=== PATIENT | female | born 1980 | race Caucasian/White ===

== ENCOUNTER 2018-08-04 07:25 | Inpatient (IN) | payer OTHER ==
[~2018-08-04] VITALS: Ht 165.1 cm; Wt 66.9 kg
[2018-08-04 10:11] VITALS: BP 129/74; PULSE 82; RESP 18
[2018-08-04 10:14] VITALS: Ht 165.1 cm; Wt 66.9 kg
--- NOTE | 2018-08-04 11:24 | HP ---
Date/Time of Note Date/Time of Note DATE: 08/04/18 TIME: 11:24 Assessment/Plan VTE Prophylaxis Pharmacological prophylaxis: NA/contraindicated Pharm contraindication: low risk/ambulating Assessment/Plan Hospital Course 37-year-old female with comorbidities including hypertension who takes antihypertensives irregularly and daily nicotine use. The patient has left gluteal area cellulitis that was unresponsive to oral antimicrobials. Therefore, the patient was transferred from a transferring hospital for inpatient management of left gluteal cellulitis. 1. Left gluteal cellulitis. -Will start the patient on appropriate antimicrobials including MRSA coverage since the patient was not responding well to Keflex plus clindamycin. -CT scan from the transferring facility was negative for any abscess. 2. Hypertension. -The patient takes antihypertensives infrequently. -Will monitor blood pressure trends. -Start antihypertensives for high blood pressure readings. 3. Vitamin B12 deficiency -Obtain vitamin B12 levels. Plan: The patient will be admitted to inpatient medical surgical floor. The patient will be started on a regular diet. The patient will be started on DVT prophylaxis. The patient will remain a full code. Activities will be as tolerated. The rest of the patient's management will be based on the clinical course, inputs from consultants, and the results of diagnostic studies. Based on the patient's clinical presentation, she most probably requires at least 2 midnights' stay for further management and evaluation of her clinical presentation. The patient was seen in collaboration with Dr. Wyman. HPI/JONAH Admit Date/Time Admit Date/Time Aug 04, 2018 at 09:55 Hx of Present Illness Reason for admission: Transfer from outside facility for further management left gluteal cellulitis. This is a 37-year-old female with past medical history of hypertension and current nicotine user. The patient has been injecting vitamin B12 imported from [place] for apparent vitamin B12 deficiency. The patient had her last shot vitamin B12 on the left gluteal area approximately 9 days ago. The patient started having pain in the area from the next day. The patient started developing swelling and erythema that became worse. The patient went to the emergency room at [facility] 3 days ago, when she had an ultrasound of the left gluteal area and was sent home on Keflex and clindamycin. The patient has started feeling worse with fevers and worsening pain and increasing erythema of the left gluteal area. Therefore, the patient went back to [facility]. The patient underwent a CT scan of the pelvis that was showing no evidence of any abscess but evidence of cellulitis. The patient was started on IV antimicrobials and was transferred to [facility] for further evaluation because of insurance reasons. ROS Constitutional: febrile Eyes: no complaints ENT: no complaints Respiratory: no complaints Cardiovascular: no complaints Gastrointestinal: no complaints Genitourinary: no complaints Musculoskeletal: swelling (Left gluteal area), other Skin: erythema Neurologic: no complaints Endocrine: no complaints Lymphatic: no complaints Psychological: no complaints Immunologic: no complaints PMH/Family/Social Past Medical History Medical History: hypertension Medications Current Medications Sodium Chloride 1,000 ml @ 75 mls/hr [id number] IV ; Start 08/04/18 at 11:21; Status UNV IV Flush (NS 3 ml) 3 ml PER PROTOCOL IV ; Start 08/04/18 at 11:30; Status UNV Ondansetron HCl (Zofran Inj) 4 mg Q6H PRN IV NAUSEA/VOMITING; Start 08/04/18 at 11:30; Status UNV Acetaminophen (Tylenol Tab) 650 mg Q6H PRN PO .PAIN 1-3 OR TEMP; Start 08/04/18 at 11:30; Status UNV Coded Allergies: No Known Allergies (Verified Allergy, Unknown, 08/04/18) Past Surgical History B/L breast plastic surgery. Family History Significant Family History: no pertinent family hx Social History Patient lives at home. Alcohol Use: other (Almost daily) Smoking Status: Current some day smoker Drug Use: none Exam/Review of Systems Vital Signs Vitals Vital Signs Date Temp Pulse Resp B/P (MAP) Pulse Ox O2 O2 Flow FiO2 Time Delivery Rate 08/04/18 98.5 82 18 129/74 97 Room Air 10:11 (92) Exam Exam General: Adequately build 37 year-old female lying in bed in no apparent distress. HEENT: Normocephalic, atraumatic. Eyes: Anicteric sclerae, conjunctivae clear. ENT: Nasal septum midline, oral mucosa moist. Neck supple, no JVD noticed. Respiratory: Bilaterally clear breath sounds. No use of accessory muscles of respiration. No adventitious breath sounds. Cardiovascular: S1, S2 heard. No murmurs or gallops. Abdomen: Soft, nontender, and nondistended. Bowel sounds positive in all 4 quadrants. Genitourinary: Deferred. Extremities: No cyanosis, no clubbing, no edema. Peripheral pulses palpable. Neurologic: Cranial nerves II through XII grossly intact. The patient is awake, alert, and oriented. Skin (examined with female reservations specialist): Left gluteal area erythema and induration. Tenderness to touch. No left inguinal lymphadenopathy. Additional Comments CT Pelvis with Contrast (from transferring facility) 1. Multiple collections and stranding in the subcutaneous fat of the left buttock suspicious for cellulitis versus trauma. 2. No organized abscess. 3. No evidence of acute fracture or dislocation. Labs (from transferring facility) CBC: WBC 6.9, hemoglobin 13.4, and 39.3, platelet count 367. BMP: Sodium 135, potassium 4.2, chloride 97, CO2 27, anion gap 11, glucose 114, BUN 5, creatinine 0.5. NURYS IZQUIERDO NP Aug 04, 2018 11:24
[2018-08-04] MEDS ORDERED: NACL 0.9% 3 ML SYG IV SCH (11:30)
[2018-08-04] MEDS ORDERED: ONDANSETRON 4 MG INJ IV PRN (11:30)
[2018-08-04] MEDS ORDERED: ACETAMINOPHEN 325 MG TAB PO PRN (11:30)
[2018-08-04] MEDS: SOD CHLORIDE 0.9% 1,000 ML IV SCH (11:54)
[2018-08-04] MEDS ORDERED: VANCOMYCIN IV PER PHARMACY XX SCH (13:00)
[2018-08-04] MEDS ORDERED: hydrALAzine 20 MG INJ IV PRN (13:00)
[2018-08-04 13:39] VITALS: BP 124/70; PULSE 76; RESP 18
[2018-08-04] MEDS ORDERED: VANCOMYCIN HCL 1.25 GM in SOD CHLORIDE 0.9% 250 ML IVPB ONE ×2 (14:00→16:00)
[2018-08-04] MEDS: CEFTRIAXONE 1 GM/50 ML (PMX) 50 ML IVPB SCH (14:27)
[2018-08-04] MEDS ORDERED: VANCOMYCIN 1 GM 250 ML IVPB SCH (16:00)
--- NOTE | 2018-08-04 17:58 | CONS ---
DATE OF ADMISSION: 08/04/2018 DATE OF CONSULTATION: 08/04/2018 TYPE OF CONSULTATION: Infectious Disease. REASON FOR CONSULTATION: Antibiotic management. HISTORY OF PRESENT ILLNESS: Nova Patel is a 37-year-old female with a number of problems incl uding hypertension. She comes in with left gluteal cellulitis unresponsive to oral antibiotics. She has a left gluteal cellulitis, which she may have developed secondary to B12 shots. The patient was not responding to Keflex and clindamycin. CT scan from the transferring facility was negative for a [place] abscess. She has been injecting B12 from [place] for B12 deficiency. Her last B12 shot was 9 days ago. She started having pain in the area from the next day. The patient started developing swellin g and erythema that became worse. The patient went to the emergency room at [place] 3 days ago when she had an ultrasound of the left gluteal area, was sent home on Keflex and clindamycin. She started feeling worse with fevers and worsening pain and increasing erythema of the left gluteal area. She then went back to [place], had a CT scan of the pelvis which did not show evidence of cellulitis, and was therefore admitted to [facility] for insurance reasons. PAST MEDICAL HISTORY: Operations as outlined. She had bilateral breast plastic surgery. SOCIAL HISTORY: She lives at home. She is a current smoker. She drinks alcohol almost daily. She does not abuse drugs. ALLERGIES: NONE TO PENICILLIN, SULFA OR FOODS. MEDICATIONS: Per chart. REVIEW OF SYSTEMS: As per HPI. PHYSICAL EXAMINATION: GENERAL: The patient is a well-developed, well-nourished female who is alert, responsive, in no acut e distress. VITAL SIGNS: Stable. She is afebrile. SKIN: Without generalized rash. HEENT: Within normal limits. NECK: Supple. LYMPH NODES: None palpable. CHEST: Decreased breath sounds at the bases. HEART: Without murmur or gallop. ABDOMEN: Soft, nontender, without organosplenomegaly or masses. EXTREMITIES: Without cyanosis, clubbing, or edema. RECTAL AND GENITAL: Exams deferred. The left gluteal area is erythematous and indurated, tender to the touch. There is no left inguinal adenopathy. NEUROLOGICAL: No focal neurological abnormality. IMAGING: CT scan of the pelvis with contrast, multiple collections and stranding in the subcutaneous fat of the left buttock suspicious for cellulitis versus trauma. No organized abscess. No evidence of acute fracture or dislocation. ANCILLARY LABORATORY DATA: White count was 5.9, H and H 11.4 and 34.3, platelet count 284,000. BUN and creatinine was not done here. PLAN: The patient was started on vancomycin and ceftriaxone. We will continue her on this regimen. I will dictate my findings to the hospitalist. Dictated By: LANI OTOOLE MD, JD/NTS Conf#: [id number] DID#: [id number] CC: RACHELLE NEWELL MD;*EndCC*
[2018-08-04] MEDS: HYDROCODONE/APAP (5/325) TAB PO PRN (18:29)
[2018-08-04 20:00] VITALS: BP 131/83; PULSE 78; RESP 20
[2018-08-04] MEDS: morphine 2 MG INJ IV PRN (23:11)
[2018-08-05] MEDS: SOD CHLORIDE 0.9% 1,000 ML IV SCH ×2 (00:41→07:30)
[2018-08-05 01:38] VITALS: BP 120/84; PULSE 78; RESP 20
[2018-08-05] MEDS: VANCOMYCIN 1 GM 250 ML IVPB SCH ×2 (04:15→17:00)
[2018-08-05] MEDS: HYDROCODONE/APAP (5/325) TAB PO PRN ×2 (05:57→14:16)
[2018-08-05 08:00] VITALS: BP 108/61; PULSE 81; RESP 18
--- NOTE | 2018-08-05 11:14 | PN ---
Date/Time of Note Date/Time of Note DATE: 08/05/18 TIME: 11:10 Assessment/Plan VTE Prophylaxis Risk score (from Nsg)>0 risk: 0 SCD applied (from Nsg): Yes Pharmacological prophylaxis: NA/contraindicated Pharm contraindication: low risk/ambulating Lines/Catheters IV Catheter Type (from Nrsg): Peripheral IV Assessment/Plan Hospital Course SUBJECTIVE: The patient remains afebrile. Left gluteal area pain improved. Still has some difficulty with walking. OBJECTIVE: Physical Exam General: Adequately build 37 year-old female lying in bed in no apparent distress. HEENT: Normocephalic, atraumatic. Eyes: Anicteric sclerae, conjunctivae clear. ENT: Nasal septum midline, oral mucosa moist. Neck supple, no JVD noticed. Respiratory: Bilaterally clear breath sounds. No use of accessory muscles of respiration. No adventitious breath sounds. Cardiovascular: S1, S2 heard. No murmurs or gallops. Abdomen: Soft, nontender, and nondistended. Bowel sounds positive in all 4 quadrants. Genitourinary: Deferred. Extremities: No cyanosis, no clubbing, no edema. Peripheral pulses palpable. Neurologic: Cranial nerves II through XII grossly intact. The patient is awake, alert, and oriented. Skin (examined with female horticulture instructor): Left gluteal area erythema and induration (improved). Tenderness to touch. No left inguinal lymphadenopathy. Labs & Vitals per chart ASSESSMENT & PLAN 37-year-old female with comorbidities including hypertension who takes antihypertensives irregularly and daily nicotine use. The patient has left gluteal area cellulitis that was unresponsive to oral antimicrobials. Therefore, the patient was transferred from a transferring hospital for inpatient management of left gluteal cellulitis. 1. Left gluteal cellulitis. -Continue the patient on appropriate antimicrobials including MRSA coverage since the patient was not responding well to Keflex plus clindamycin. -CT scan from the transferring facility was negative for any abscess. -ID following. 2. Hypertension. -The patient takes antihypertensives infrequently. -Will monitor blood pressure trends. -Continue antihypertensives for high blood pressure readings. 3. Reported vitamin B12 deficiency -Vitamin B12 levels adequate. 4. Nicotine use. -Cessation advised. 5. Fluids, electrolytes, and nutrition. -Regular diet. 6. DVT prophylaxis -Bilateral SCDs. 7. Plan. -Continue antimicrobials as per ID. -Await clinical improvement. -Physical therapy evaluation. The patient was seen in collaboration with Dr. Wyman. Result Diagram: 08/05/18 0538 08/05/18 0538 Results 24hrs Laboratory Tests Test 08/04/18 13:59 08/04/18 16:00 08/05/18 05:38 White Blood Count 5.9 5.4 Red Blood Count 3.66 L 3.75 L Hemoglobin 11.4 L 11.6 L Hematocrit 34.3 L 35.7 L Mean Corpuscular Volume 93.7 95.2 Mean Corpuscular Hemoglobin 31.1 30.9 Mean Corpuscular Hemoglobin Concent 33.2 32.5 Red Cell Distribution Width 12.5 12.4 Platelet Count 284 304 Mean Platelet Volume 9.8 9.5 Immature Granulocytes % 0.300 0.400 Neutrophils % 72.1 57.2 Lymphocytes % 16.5 28.3 Monocytes % 8.7 10.7 Eosinophils % 1.9 2.8 Basophils % 0.5 0.6 Nucleated Red Blood Cells % 0.0 0.0 Immature Granulocytes # 0.020 0.020 Neutrophils # 4.2 3.1 Lymphocytes # 1.0 1.5 Monocytes # 0.5 0.6 Eosinophils # 0.1 0.2 Basophils # 0.0 0.0 Nucleated Red Blood Cells # 0.0 0.0 Erythrocyte Sedimentation Rate 30 H Sodium Level 140 140 Potassium Level 3.7 4.2 Chloride Level 103 107 Carbon Dioxide Level 24 26 Anion Gap 13 7 Blood Urea Nitrogen 7 5 L Creatinine 0.63 0.56 Est Glomerular Filtrat Rate mL/min > 60 > 60 Glucose Level 120 94 Hemoglobin A1c 5.1 Calcium Level 8.6 8.7 Phosphorus Level 3.3 3.6 Magnesium Level 2.1 2.1 Total Bilirubin 0.1 L 0.1 L Direct Bilirubin 0.00 0.00 Indirect Bilirubin 0.1 0.1 Aspartate Amino Transf (AST/SGOT) 21 21 Alanine Aminotransferase (ALT/SGPT) 31 30 Alkaline Phosphatase 72 75 C-Reactive Protein 7.5 H Total Protein 6.8 6.5 Albumin 3.3 3.2 L Globulin 3.50 H 3.30 H Albumin/Globulin Ratio 0.94 0.96 Vitamin B12 Level 980 H Urine Test NEGATIVE Triglycerides Level 82 Cholesterol Level 122 LDL Cholesterol, Calculated 77 HDL Cholesterol 29 L Cholesterol/HDL Ratio 4.2 Exam/Review of Systems Exam Vitals Vital Signs Date Temp Pulse Resp B/P (MAP) Pulse Ox O2 O2 Flow FiO2 Time Delivery Rate 08/05/18 98.3 81 18 108/61 97 Room Air 08:00 (77) Intake and Output 08/04/18 08/04/18 08/05/18 1515:00 23:00 07:00 IntakeIntake Total 1050 ml 1100 ml BalanceBalance 1050 ml 1100 ml Results Results 24hrs Laboratory Tests Test 08/04/18 13:59 08/04/18 16:00 08/05/18 05:38 White Blood Count 5.9 5.4 Red Blood Count 3.66 L 3.75 L Hemoglobin 11.4 L 11.6 L Hematocrit 34.3 L 35.7 L Mean Corpuscular Volume 93.7 95.2 Mean Corpuscular Hemoglobin 31.1 30.9 Mean Corpuscular Hemoglobin Concent 33.2 32.5 Red Cell Distribution Width 12.5 12.4 Platelet Count 284 304 Mean Platelet Volume 9.8 9.5 Immature Granulocytes % 0.300 0.400 Neutrophils % 72.1 57.2 Lymphocytes % 16.5 28.3 Monocytes % 8.7 10.7 Eosinophils % 1.9 2.8 Basophils % 0.5 0.6 Nucleated Red Blood Cells % 0.0 0.0 Immature Granulocytes # 0.020 0.020 Neutrophils # 4.2 3.1 Lymphocytes # 1.0 1.5 Monocytes # 0.5 0.6 Eosinophils # 0.1 0.2 Basophils # 0.0 0.0 Nucleated Red Blood Cells # 0.0 0.0 Erythrocyte Sedimentation Rate 30 H Sodium Level 140 140 Potassium Level 3.7 4.2 Chloride Level 103 107 Carbon Dioxide Level 24 26 Anion Gap 13 7 Blood Urea Nitrogen 7 5 L Creatinine 0.63 0.56 Est Glomerular Filtrat Rate mL/min > 60 > 60 Glucose Level 120 94 Hemoglobin A1c 5.1 Calcium Level 8.6 8.7 Phosphorus Level 3.3 3.6 Magnesium Level 2.1 2.1 Total Bilirubin 0.1 L 0.1 L Direct Bilirubin 0.00 0.00 Indirect Bilirubin 0.1 0.1 Aspartate Amino Transf (AST/SGOT) 21 21 Alanine Aminotransferase (ALT/SGPT) 31 30 Alkaline Phosphatase 72 75 C-Reactive Protein 7.5 H Total Protein 6.8 6.5 Albumin 3.3 3.2 L Globulin 3.50 H 3.30 H Albumin/Globulin Ratio 0.94 0.96 Vitamin B12 Level 980 H Urine Test NEGATIVE Triglycerides Level 82 Cholesterol Level 122 LDL Cholesterol, Calculated 77 HDL Cholesterol 29 L Cholesterol/HDL Ratio 4.2 Medications Medication Current Medications Sodium Chloride 1,000 ml @ 75 mls/hr [id number] IV Last administered on 08/05/18at 07:30; Admin Dose 75 MLS/HR; Start 08/04/18 at 11:21 IV Flush (NS 3 ml) 3 ml PER PROTOCOL IV ; Start 08/04/18 at 11:30 Ondansetron HCl (Zofran Inj) 4 mg Q6H PRN IV NAUSEA/VOMITING; Start 08/04/18 at 11:30 Acetaminophen (Tylenol Tab) 650 mg Q6H PRN PO .PAIN 1-3 OR TEMP Last administered on 08/04/18at 11:55; Admin Dose 650 MG; Start 08/04/18 at 11:30 Vancomycin HCl (Vanco Iv Per Pharmacy) VANCOMYCIN PER PHARMACY PER PROTOCOL XX ; Start 08/04/18 at 13:00 Ceftriaxone Sodium 50 ml @ 100 mls/hr Q24H IVPB Last administered on 08/04/18at 14:27; Admin Dose 100 MLS/HR; Start 08/04/18 at 13:00 Hydralazine HCl (Apresoline) 10 mg Q6H PRN IV SBP>160; Start 08/04/18 at 13:00 Acetaminophen/ Hydrocodone Bitart ([place] (5/325)) 1 tab Q6H PRN PO MODERATE PAIN LEVEL 4-6 Last administered on 08/05/18at 05:57; Admin Dose 1 TAB; Start 08/04/18 at 13:00 Morphine Sulfate (morphine) 2 mg Q4H PRN IV SEVERE PAIN LEVEL 7-10 Last administered on 08/04/18at 23:11; Admin Dose 2 MG; Start 08/04/18 at 13:00 Vancomycin HCl 250 ml @ 125 mls/hr Q12H IVPB Last administered on 08/05/18at 04:15; Admin Dose 125 MLS/HR; Start 08/05/18 at 04:00 Miscellaneous Information (*Rx Drug Level Order Reminder*) VANCOMYCIN TROUGH AT 0300 ONCE ONCE XX ; Start 08/06/18 at 03:00; Stop 08/06/18 at 03:01 NURYS IZQUIERDO NP Aug 05, 2018 11:14
[2018-08-05] MEDS: morphine 2 MG INJ IV PRN ×2 (11:37→21:55)
[2018-08-05] MEDS: CEFTRIAXONE 1 GM/50 ML (PMX) 50 ML IVPB SCH (12:39)
[2018-08-05 14:00] VITALS: BP 137/82; PULSE 79; RESP 18
--- NOTE | 2018-08-05 15:06 | CONS ---
Assessment/Plan Assessment/Plan Hospital Course (Demo Recall) ID PROGRESS NOTE CURRENT ABX: DAY #1.5 => Vanco IV + Ceftriaxone 08/05/18 0538 08/05/18 0538 24H INTERVAL SUMMARY * No fevers, VSS, polite, she is reportedly a difficult IV stick, she is currently having IV placed w/use of vein finder/US and has tears in her eyes. She denies any drainage from the buttock site -- exam of buttock is deferred as RNs attempting venous access -- PHOTOS on chart reviewed. * No fevers, VSS, ESR 30 * Admit for failed PO ABX Tx with Clinda + Keflex of left gluteus wound and L gluteus cellulitis reportedly as a result of injecting B12 from [place] for B12 deficiency-last B12 shot was 9 prior to admission * IMAGING: CT scan of the pelvis with contrast, multiple collections and stranding in the subcutaneous fat of the left buttock suspicious for cellulitis versus trauma. No organized abscess. No evidence of acute fracture or dislocation. * CT scan from the transferring facility was negative for any abscess. MICRO/OTHER * 08/04/18 BCx (-) PHYSICAL EXAMINATION: GENERAL: The patient is a well-developed, well-nourished female who is alert, responsive, in no acute distress. VITAL SIGNS: Stable. She is afebrile. SKIN: Without generalized rash. HEENT: Within normal limits. NECK: Supple. LYMPH NODES: None palpable. CHEST: Decreased breath sounds at the bases. HEART: Without murmur or gallop. ABDOMEN: Soft, nontender, without organosplenomegaly or masses. EXTREMITIES: Without cyanosis, clubbing, or edema. RECTAL AND GENITAL: Exams deferred. The left gluteal area is erythematous and indurated, tender to the touch. There is no left inguinal adenopathy. NEUROLOGICAL: No focal neurological abnormality. ID ASSESSMENT 37 yo F admit with: 1. Left gluteal cellulitis from local injections == QUERY IVDU ? * -CT scan from the transferring facility was negative for any abscess. 2. Hx of Hepatitis C w/liver cirrhosis per EGD biopsy note 2009 3. Portal HTN 4. HTN 5. Hx of gastric ulcers -- avoid NSAIDS 6. Vitamin B12 deficiency - patient reports she is on B12 injections. 7. Psych Dx NOS w/anxiety 8. Hx of overdose from "pills" x2: #1 2000 in [place]; #2 OD in 2003 9. Current daily tobacco user 10. Daily ETOH user 11. Hx Bilateral breast implants MRSA Nares -> Pending INVASIVES: PIV ABX ALLERGIES: KNDA CURRENT ABX: Vanco IV + Ceftriaxone ID RECOMMENDATIONS/PLAN: 1. Continue ABX 2. Await wound cx and MRSA Nares on order . Consultation Date/Type/Reason Admit Date/Time Aug 04, 2018 at 09:55 Initial Consult Date Date/Time of Note DATE: 08/05/18 TIME: 14:53 Exam/Review of Systems Exam Vitals Vital Signs Date Temp Pulse Resp B/P (MAP) Pulse Ox O2 O2 Flow FiO2 Time Delivery Rate 08/05/18 98.3 81 18 108/61 97 Room Air 08:00 (77) Intake and Output 08/04/18 08/04/18 08/05/18 1414:59 22:59 06:59 IntakeIntake Total 1050 ml 1100 ml BalanceBalance 1050 ml 1100 ml Results Result Diagram: 08/05/18 0538 08/05/18 0538 Results 24hrs Laboratory Tests Test 08/04/18 16:00 08/05/18 05:38 Urine Test NEGATIVE White Blood Count 5.4 Red Blood Count 3.75 L Hemoglobin 11.6 L Hematocrit 35.7 L Mean Corpuscular Volume 95.2 Mean Corpuscular Hemoglobin 30.9 Mean Corpuscular Hemoglobin Concent 32.5 Red Cell Distribution Width 12.4 Platelet Count 304 Mean Platelet Volume 9.5 Immature Granulocytes % 0.400 Neutrophils % 57.2 Lymphocytes % 28.3 Monocytes % 10.7 Eosinophils % 2.8 Basophils % 0.6 Nucleated Red Blood Cells % 0.0 Immature Granulocytes # 0.020 Neutrophils # 3.1 Lymphocytes # 1.5 Monocytes # 0.6 Eosinophils # 0.2 Basophils # 0.0 Nucleated Red Blood Cells # 0.0 Sodium Level 140 Potassium Level 4.2 Chloride Level 107 Carbon Dioxide Level 26 Anion Gap 7 Blood Urea Nitrogen 5 L Creatinine 0.56 Est Glomerular Filtrat Rate mL/min > 60 Glucose Level 94 Calcium Level 8.7 Phosphorus Level 3.6 Magnesium Level 2.1 Total Bilirubin 0.1 L Direct Bilirubin 0.00 Indirect Bilirubin 0.1 Aspartate Amino Transf (AST/SGOT) 21 Alanine Aminotransferase (ALT/SGPT) 30 Alkaline Phosphatase 75 Total Protein 6.5 Albumin 3.2 L Globulin 3.30 H Albumin/Globulin Ratio 0.96 Triglycerides Level 82 Cholesterol Level 122 LDL Cholesterol, Calculated 77 HDL Cholesterol 29 L Cholesterol/HDL Ratio 4.2 Medications Medication Current Medications IV Flush (NS 3 ml) 3 ml PER PROTOCOL IV ; Start 08/04/18 at 11:30 Ondansetron HCl (Zofran Inj) 4 mg Q6H PRN IV NAUSEA/VOMITING; Start 08/04/18 at 11:30 Acetaminophen (Tylenol Tab) 650 mg Q6H PRN PO .PAIN 1-3 OR TEMP Last administered on 08/04/18at 11:55; Admin Dose 650 MG; Start 08/04/18 at 11:30 Vancomycin HCl (Vanco Iv Per Pharmacy) VANCOMYCIN PER PHARMACY PER PROTOCOL XX ; Start 08/04/18 at 13:00 Ceftriaxone Sodium 50 ml @ 100 mls/hr Q24H IVPB Last administered on 08/05/18at 12:39; Admin Dose 100 MLS/HR; Start 08/04/18 at 13:00 Hydralazine HCl (Apresoline) 10 mg Q6H PRN IV SBP>160; Start 08/04/18 at 13:00 Acetaminophen/ Hydrocodone Bitart ([place] (5/325)) 1 tab Q6H PRN PO MODERATE PAIN LEVEL 4-6 Last administered on 08/05/18at 14:16; Admin Dose 1 TAB; Start 08/04/18 at 13:00 Morphine Sulfate (morphine) 2 mg Q4H PRN IV SEVERE PAIN LEVEL 7-10 Last administered on 08/05/18at 11:37; Admin Dose 2 MG; Start 08/04/18 at 13:00 Vancomycin HCl 250 ml @ 125 mls/hr Q12H IVPB Last administered on 08/05/18at 04:15; Admin Dose 125 MLS/HR; Start 08/05/18 at 04:00 Miscellaneous Information (*Rx Drug Level Order Reminder*) VANCOMYCIN TROUGH AT 0300 ONCE ONCE XX ; Start 08/06/18 at 03:00; Stop 08/06/18 at 03:01 MISAEL YOO NP Aug 05, 2018 15:04
[2018-08-05 20:41] VITALS: BP 131/85; PULSE 76; RESP 18
[2018-08-05] MEDS ORDERED: KETOROLAC 15 MG INJ IV PRN (23:00)
[2018-08-06 02:00] VITALS: BP 119/75; PULSE 62; RESP 18
[2018-08-06] MEDS: VANCOMYCIN 1 GM 250 ML IVPB SCH ×3 (04:18→20:24)
[2018-08-06 08:00] VITALS: BP 114/75; PULSE 74; RESP 18
[2018-08-06 14:00] VITALS: BP 118/65; PULSE 78; RESP 18
--- NOTE | 2018-08-06 14:08 | PN ---
Date/Time of Note Date/Time of Note DATE: 08/06/18 TIME: 14:05 Assessment/Plan VTE Prophylaxis Risk score (from Nsg)>0 risk: 0 SCD applied (from Ns): No SCD contraindicated: other Pharmacological prophylaxis: LMWH Lines/Catheters IV C[facility]ter Type [facility]from [facility] Saline Lock Assessment/Plan Hospital Course SUBJECTIVE: The patient remains afebrile. Significant pain last night with radiation down the left lower extremity. Still has some difficulty with walking. OBJECTIVE: Physical Exam General: Adequately build 37 year-old female lying in bed in no apparent dis tress. HEENT: Normocephalic, atraumatic. Eyes: Anicteric sclerae, conjunctivae clear. ENT: Nasal septum midline, oral mucosa moist. Neck supple, no JVD noticed. Respiratory: Bilaterally clear breath sounds. No use of accessory muscles of respiration. No adventitious breath sounds. Cardiovascular: S1, S2 heard. No murmurs or gallops. Abdomen: Soft, nontender, and nondistended. Bowel sounds positive in all 4 quadrants. Genitourinary: Deferred. Extremities: No cyanosis, no clubbing, no edema. Peripheral pulses palpable. Neurologic: Cranial nerves II through XII grossly intact. The patient is awake, alert, and oriented. Skin (examined with female bleacher lard): Left gluteal area erythema resolving. Tenderness to touch. Left inguinal lymphadenopathy. Labs & Vitals per chart ASSESSMENT & PLAN 37-year-old female with comorbidities including hypertension who takes antihyper tensives irregularly and daily nicotine use. The patient has left gluteal area cellulitis that was unresponsive to oral antimicrobials. Therefore, the patient was transferred from a transferring hospital for inpatient management of left gluteal cellulitis. 1. Left gluteal cellulitis. -Continue the patient on appropriate antimicrobials including MRSA coverage since the patient was not responding well to Keflex plus clindamycin. -CT scan from the transferring facility was negative for any abscess. -ID following. 2. Hypertension. -The patient takes antihypertensives infrequently. -Will monitor blood pressure trends. -Continue antihypertensives for high blood pressure readings. 3. Reported vitamin B12 deficiency -Vitamin B12 levels adequate. 4. Nicotine use. -Cessation advised. 5. Remote history of gastric ulcers. 6. Fluids, electrolytes, and nutrition. -Regular diet. 7. DVT prophylaxis -Bilateral SCDs. 8. Plan. -Continue antimicrobials as per ID. -Await clinical improvement. The patient was updated on the plan of care. The patient was seen in collaboration with Dr. Wyman. Result Diagram: 08/06/18 0608 08/06/18 0608 Results 24hrs Laboratory Tests Test 08/06/18 02:58 08/06/18 03:02 08/06/18 06:08 Hepatitis B Surface Antigen Pending Hepatitis B Core Total Antibody Pending Hepatitis C Antibody Pending HIV (1&2) Antibody Pending Vancomycin Level Trough 5.8 L White Blood Count 6.4 Red Blood Count 4.11 L Hemoglobin 13.0 Hematocrit 38.4 Mean Corpuscular Volume 93.4 Mean Corpuscular Hemoglobin 31.6 Mean Corpuscular Hemoglobin Concent 33.9 Red Cell Distribution Width 12.2 Platelet Count 388 # Mean Platelet Volume 9.6 Immature Granulocytes % 0.800 H Neutrophils % 59.2 Lymphocytes % 25.6 Monocytes % 10.2 Eosinophils % 3.6 Basophils % 0.6 Nucleated Red Blood Cells % 0.0 Immature Granulocytes # 0.050 H Neutrophils # 3.8 Lymphocytes # 1.6 Monocytes # 0.7 Eosinophils # 0.2 Basophils # 0.0 Nucleated Red Blood Cells # 0.0 Erythrocyte Sedimentation Rate 60 H Sodium Level 139 Potassium Level 4.3 Chloride Level 103 Carbon Dioxide Level 30 Anion Gap 6 Blood Urea Nitrogen 8 Creatinine 0.58 Est Glomerular Filtrat Rate mL/min > 60 Glucose Level 97 Calcium Level 9.3 Phosphorus Level 4.2 Magnesium Level 2.1 C-Reactive Protein 4.9 H Exam/Review of Systems Exam Vitals Vital Signs Date Temp Pulse Resp B/P (MAP) Pulse Ox O2 O2 Flow FiO2 Time Delivery Rate 08/06/18 98.6 74 18 114/75 97 08:00 (88) 08/05/18 Room Air 08:00 Intake and Output 08/05/18 08/05/18 08/06/18 1515:00 23:00 07:00 IntakeIntake Total 902 ml 365 ml 250 ml BalanceBalance 902 ml 365 ml 250 ml Results Results 24hrs Laboratory Tests Test 08/06/18 02:58 08/06/18 03:02 08/06/18 06:08 Hepatitis B Surface Antigen Pending Hepatitis B Core Total Antibody Pending Hepatitis C Antibody Pending HIV (1&2) Antibody Pending Vancomycin Level Trough 5.8 L White Blood Count 6.4 Red Blood Count 4.11 L Hemoglobin 13.0 Hematocrit 38.4 Mean Corpuscular Volume 93.4 Mean Corpuscular Hemoglobin 31.6 Mean Corpuscular Hemoglobin Concent 33.9 Red Cell Distribution Width 12.2 Platelet Count 388 # Mean Platelet Volume 9.6 Immature Granulocytes % 0.800 H Neutrophils % 59.2 Lymphocytes % 25.6 Monocytes % 10.2 Eosinophils % 3.6 Basophils % 0.6 Nucleated Red Blood Cells % 0.0 Immature Granulocytes # 0.050 H Neutrophils # 3.8 Lymphocytes # 1.6 Monocytes # 0.7 Eosinophils # 0.2 Basophils # 0.0 Nucleated Red Blood Cells # 0.0 Erythrocyte Sedimentation Rate 60 H Sodium Level 139 Potassium Level 4.3 Chloride Level 103 Carbon Dioxide Level 30 Anion Gap 6 Blood Urea Nitrogen 8 Creatinine 0.58 Est Glomerular Filtrat Rate mL/min > 60 Glucose Level 97 Calcium Level 9.3 Phosphorus Level 4.2 Magnesium Level 2.1 C-Reactive Protein 4.9 H Medications Medication Current Medications IV Flush (NS 3 ml) 3 ml PER PROTOCOL IV ; Start 08/04/18 at 11:30 Ondansetron HCl (Zofran Inj) 4 mg Q6H PRN IV NAUSEA/VOMITING; Start 08/04/18 at 11:30 Acetaminophen (Tylenol Tab) 650 mg Q6H PRN PO .PAIN 1-3 OR TEMP Last administered on 08/04/18at 11:55; Admin Dose 650 MG; Start 08/04/18 at 11:30 Vancomycin HCl (Vanco Iv Per Pharmacy) VANCOMYCIN PER PHARMACY PER PROTOCOL XX ; Start 08/04/18 at 13:00 Ceftriaxone Sodium 50 ml @ 100 mls/hr Q24H IVPB Last administered on 08/05/18at 12:39; Admin Dose 100 MLS/HR; Start 08/04/18 at 13:00 Hydralazine HCl (Apresoline) 10 mg Q6H PRN IV SBP>160; Start 08/04/18 at 13:00 Acetaminophen/ Hydrocodone Bitart ([place] (5/325)) 1 tab Q6H PRN PO MODERATE PAIN LEVEL 4-6 Last administered on 08/05/18at 14:16; Admin Dose 1 TAB; Start 08/04/18 at 13:00 Morphine Sulfate (morphine) 2 mg Q4H PRN IV SEVERE PAIN LEVEL 7-10 Last administered on 08/05/18at 21:55; Admin Dose 2 MG; Start 08/04/18 at 13:00 Ketorolac Tromethamine (Toradol) 15 mg Q6H PRN IV PAIN; Start 08/05/18 at 23:00; Stop 08/08/18 at 22:59 Vancomycin HCl 250 ml @ 125 mls/hr Q8H IVPB Last administered on 08/06/18at 12:18; Admin Dose 125 MLS/HR; Start 08/06/18 at 04:00 Miscellaneous Information (*Rx Drug Level Order Reminder*) VANCOMYCIN TROUGH AT 1100 ONCE ONCE XX ; Start 08/07/18 at 11:00; Stop 08/07/18 at 11:01 NURYS IZQUIERDO NP Aug 06, 2018 14:08
[2018-08-06] MEDS: CEFTRIAXONE 1 GM/50 ML (PMX) 50 ML IVPB SCH (14:22)
--- NOTE | 2018-08-06 14:54 | CONS ---
Assessment/Plan Assessment/Plan Hospital Course (Demo Recall) ID PROGRESS NOTE CURRENT ABX: DAY #2.5 => Vanco IV + Ceftriaxone 08/06/18 0608 08/06/18 0608 24H INTERVAL SUMMARY * A/A/O -- reports last night increase subjective fever (TMax recorded 99.0) with increased erythema and warmth to left buttock injection site. * No fevers, VSS, today -- Today the left hip skin erythema has nearly resolved - yet she tells me that yesterday it had improved then became red/hot/painful at night. * CRP down from 7.5-> 4.9 with ESR 30 -> 60 * Admit for failed PO ABX Tx with Clinda + Keflex of left gluteus wound and L gluteus cellulitis reportedly as a result of injecting B12 from [place] for B12 deficiency-last B12 shot was 9 prior to admission * IMAGING: CT scan of the pelvis with contrast, multiple collections and stranding in the subcutaneous fat of the left buttock suspicious for cellulitis versus trauma. No organized abscess. No evidence of acute fracture or dislocation. * CT scan from the transferring facility was negative for any abscess. MICRO/OTHER * 08/04/18 BCx (-) PHYSICAL EXAMINATION: GENERAL: The patient is a well-developed, well-nourished female who is alert, responsive, in no acute distress. VITAL SIGNS: Stable. She is afebrile. SKIN: Without generalized rash. HEENT: Within normal limits. NECK: Supple. LYMPH NODES: None palpable. CHEST: Decreased breath sounds at the bases. HEART: Without murmur or gallop. ABDOMEN: Soft, nontender, without organosplenomegaly or masses. EXTREMITIES: Without cyanosis, clubbing, or edema. RECTAL AND GENITAL: Exams deferred. The left gluteal area is erythematous and indurated, tender to the touch. There is no left inguinal adenopathy. NEUROLOGICAL: No focal neurological abnormality. ID ASSESSMENT 37 yo F admit with: 1. Left gluteal cellulitis from local injections B12 * -CT scan from the transferring facility was negative for any abscess. 2. Hx of Hepatitis C w/liver cirrhosis per EGD biopsy note 2009 3. Portal HTN 4. HTN 5. Hx of gastric ulcers -- avoid NSAIDS 6. Vitamin B12 deficiency - patient reports she is on B12 injections. 7. Psych Dx NOS w/anxiety 8. Hx of overdose from "pills" x2: #1 2000 in [place]; #2 OD in 2003 9. Current daily tobacco user 10. Daily ETOH user 11. Hx Bilateral breast implants MRSA Nares -> Pending INVASIVES: PIV ABX ALLERGIES: KNDA CURRENT ABX: Vanco IV + Ceftriaxone ID RECOMMENDATIONS/PLAN: 1. Continue ABX 2. Await wound cx and MRSA Nares on order 3. May DC tomorrow on Bactrim DS 1TAB PO Q12 + Augmentin 875mg po BID x 7 days . Consultation Date/Type/Reason Admit Date/Time Aug 04, 2018 at 09:55 Initial Consult Date Date/Time of Note DATE: 08/06/18 TIME: 14:48 Exam/Review of Systems Exam Vitals Vital Signs Date Temp Pulse Resp B/P (MAP) Pulse Ox O2 O2 Flow FiO2 Time Delivery Rate 08/06/18 98.6 74 18 114/75 97 08:00 (88) 08/05/18 Room Air 08:00 Intake and Output 08/05/18 08/05/18 08/06/18 1515:00 23:00 07:00 IntakeIntake Total 902 ml 365 ml 250 ml BalanceBalance 902 ml 365 ml 250 ml Results Result Diagram: 08/06/18 0608 08/06/18 0608 Results 24hrs Laboratory Tests Test 08/06/18 02:58 08/06/18 03:02 08/06/18 06:08 Hepatitis B Surface Antigen Pending Hepatitis B Core Total Antibody Pending Hepatitis C Antibody Pending HIV (1&2) Antibody Pending Vancomycin Level Trough 5.8 L White Blood Count 6.4 Red Blood Count 4.11 L Hemoglobin 13.0 Hematocrit 38.4 Mean Corpuscular Volume 93.4 Mean Corpuscular Hemoglobin 31.6 Mean Corpuscular Hemoglobin Concent 33.9 Red Cell Distribution Width 12.2 Platelet Count 388 # Mean Platelet Volume 9.6 Immature Granulocytes % 0.800 H Neutrophils % 59.2 Lymphocytes % 25.6 Monocytes % 10.2 Eosinophils % 3.6 Basophils % 0.6 Nucleated Red Blood Cells % 0.0 Immature Granulocytes # 0.050 H Neutrophils # 3.8 Lymphocytes # 1.6 Monocytes # 0.7 Eosinophils # 0.2 Basophils # 0.0 Nucleated Red Blood Cells # 0.0 Erythrocyte Sedimentation Rate 60 H Sodium Level 139 Potassium Level 4.3 Chloride Level 103 Carbon Dioxide Level 30 Anion Gap 6 Blood Urea Nitrogen 8 Creatinine 0.58 Est Glomerular Filtrat Rate mL/min > 60 Glucose Level 97 Calcium Level 9.3 Phosphorus Level 4.2 Magnesium Level 2.1 C-Reactive Protein 4.9 H Medications Medication Current Medications IV Flush (NS 3 ml) 3 ml PER PROTOCOL IV ; Start 08/04/18 at 11:30 Ondansetron HCl (Zofran Inj) 4 mg Q6H PRN IV NAUSEA/VOMITING; Start 08/04/18 at 11:30 Acetaminophen (Tylenol Tab) 650 mg Q6H PRN PO .PAIN 1-3 OR TEMP Last administered on 08/04/18at 11:55; Admin Dose 650 MG; Start 08/04/18 at 11:30 Vancomycin HCl (Vanco Iv Per Pharmacy) VANCOMYCIN PER PHARMACY PER PROTOCOL XX ; Start 08/04/18 at 13:00 Ceftriaxone Sodium 50 ml @ 100 mls/hr Q24H IVPB Last administered on 08/06/18at 14:22; Admin Dose 100 MLS/HR; Start 08/04/18 at 13:00 Hydralazine HCl (Apresoline) 10 mg Q6H PRN IV SBP>160; Start 08/04/18 at 13:00 Acetaminophen/ Hydrocodone Bitart ([place] (5/325)) 1 tab Q6H PRN PO MODERATE PAIN LEVEL 4-6 Last administered on 08/05/18at 14:16; Admin Dose 1 TAB; Start 08/04/18 at 13:00 Morphine Sulfate (morphine) 2 mg Q4H PRN IV SEVERE PAIN LEVEL 7-10 Last administered on 08/05/18at 21:55; Admin Dose 2 MG; Start 08/04/18 at 13:00 Ketorolac Tromethamine (Toradol) 15 mg Q6H PRN IV PAIN; Start 08/05/18 at 23:00; Stop 08/08/18 at 22:59 Vancomycin HCl 250 ml @ 125 mls/hr Q8H IVPB Last administered on 08/06/18at 12:18; Admin Dose 125 MLS/HR; Start 08/06/18 at 04:00 Miscellaneous Information (*Rx Drug Level Order Reminder*) VANCOMYCIN TROUGH AT 1100 ONCE ONCE XX ; Start 08/07/18 at 11:00; Stop 08/07/18 at 11:01 Enoxaparin Sodium (Lovenox) 40 mg DAILY SC ; Start 08/06/18 at 14:30 MISAEL YOO NP Aug 06, 2018 14:54
[2018-08-06] MEDS: ENOXAPARIN 40 MG/0.4 ML SYG SC SCH (15:10)
[2018-08-06 19:50] VITALS: BP 131/86; PULSE 78; RESP 18
[2018-08-06] MEDS: morphine 2 MG INJ IV PRN (20:24)
[2018-08-07] MEDS: morphine 2 MG INJ IV PRN (01:14)
[2018-08-07 02:22] VITALS: BP 125/85; PULSE 68; RESP 18
[2018-08-07] MEDS: VANCOMYCIN 1 GM 250 ML IVPB SCH ×2 (04:20→12:10)
[2018-08-07 07:30] VITALS: BP 107/84; PULSE 68; RESP 20
[2018-08-07] MEDS: ENOXAPARIN 40 MG/0.4 ML SYG SC SCH (08:54)
[2018-08-07] MEDS ORDERED: AMOX1TAB10 PO (12:36)
[2018-08-07] MEDS ORDERED: SULF1TAB31 PO (12:36)
--- NOTE | 2018-08-07 12:39 | PDOCDIS ---
Discharge Instructions CONDITION [id number] Patient Condition: [id number] Stable HOME CARE INSTRUCTIONS: [id number] Diet Instructions: [id number] Regular OTHER ORDERS: Other Orders: 1. Take a regular diet. 2. Complete course of antibiotics 3. Resume activities as tolerated. 4. Follow-up with your primary care physician 1 week. 5. Please go to the nearest emergency room if you have persistent fevers, increased redness and swelling of the left gluteal area, increasing pain at the left gluteal area, or any other unusual signs/symptoms. NURYS IZQUIERDO NP Aug 07, 2018 12:39
--- NOTE | 2018-08-07 12:45 | DS ---
Date/Time of Note Date/Time of Note DATE: 08/07/18 TIME: 12:42 Discharge Summary Admission/Discharge Info Admit Date/Time Aug 04, 2018 at 09:55 Discharge Date/Time Discharge Diagnosis 1. Left gluteal cellulitis. 2. Hypertension (history). 3. Nicotine use. 4. History of hepatitis C. 5. Remote history of gastric ulcers. Patient Condition: Stable Consults 1. Ganesh Rivera MD, Infectious Disease. Hx of Present Illness Reason for admission: Transfer from outside facility for further management left gluteal cellulitis. This is a 37-year-old female with past medical history of hypertension and current nicotine user. The patient has been injecting vitamin B12 imported from [place] for apparent vitamin B12 deficiency. The patient had her last shot vitamin B12 on the left gluteal area approximately 9 days ago. The patient started having pain in the area from the next day. The patient started developing swelling and erythema that became worse. The patient went to the emergency room at [facility] 3 days ago, when she had an ultrasound of the left gluteal area and was sent home on Keflex and clindamycin. The patient has started feeling worse with fevers and worsening pain and increasing erythema of the left gluteal area. Therefore, the patient went back to [facility]. The patient underwent a CT scan of the pelvis that was showing no evidence of any abscess but evidence of cellulitis. The patient was started on IV antimicrobials and was transferred to [facility] for further evaluation because of insurance reasons. Hospital Course The patient was admitted to inpatient setting.The patient was started on antimicrobials including coverage for MRSA since the patient was not responding to Keflex and clindamycin that was given before. The patient's CT scan of the pelvis from the transferring facility was negative for any abscess. Infectious diseases consult was obtained. The patient denied any history of IV drug abuse. The patient has a remote history of hepatitis C that she conveyed that she got from her . The patient's HIV 1 and 2 antibody was negative. The patient responded well to the antibiotic regimen. The patient's MRSA screen was ne gative. The patient will be discharged home on antimicrobials orally including coverage for MRSA. The patient was taking vitamin B12 injections for reported vitamin B12 deficiency. The patient's vitamin B12 levels were adequate and in fact higher than normal. The patient was evaluated by physical therapy because of significant left sided pain and difficulty in ambulation. Physical therapy recommended front wheel walker versus cane for discharge. However, the patient did not want to use these. Nevertheless, the patient's difficulty in ambulation improved with improvement in the patient's pain and gluteal cellulitis. The patient verbalized history of hypertension and was taking Norvasc at some point of time. The patient's blood pressure trends were adequate during this hospitalization. The patient is a current nicotine user. The patient was advised on cessation. The patient has a remote history of gastric ulcers. The patient did not have any active issues at this time. The patient had a stable hospital course. The patient is stable to be discharged home on oral antibiotics. Discharge Instructions 1. Take a regular diet. 2. Complete course of antibiotics 3. Resume activities as tolerated. 4. Follow-up with your primary care physician 1 week. 5. Please go to the nearest emergency room if you have persistent fevers, increased redness and swelling of the left gluteal area, increasing pain at the left gluteal area, or any other unusual signs/symptoms. The patient verbalized understanding of her discharge instructions. At this time I like to thank all the consultants for seeing the patient and providing clinical recommendations. The patient was seen in collaboration with Dr. Wyman. Home Meds Active Scripts Amoxicillin/Potassium Clav (Amox-Clav 875-125 mg Tablet) 875-125 mg Tab, 1 TAB PO BID for 7 Days, #14 TAB Prov:NURYS IZQUIERDO JAVA SECURITY ARCHITECT 08/07/18 Sulfamethoxazole/Trimethoprim* (Bactrim Ds* Tablet) 1 Each Tablet, 1 TAB PO BID for 7 Days, #14 TAB Prov:NURYS IZQUIERDO JAVA SECURITY ARCHITECT 08/07/18 Discontinued Reported Medications [None] No Conflict Check 06/12/10 Follow-up Plan Follow-up with primary care physician in 1 week. Primary Care Provider Not On Staff Doctor Time spent on discharge: > 30 minutes Pending Labs Laboratory Tests Test 08/06/18 12:43 08/07/18 06:05 08/07/18 10:45 Hepatitis A IgM NON-REACTIVE (NON-R Antibody EACTIVE) Erythrocyte 50 mm/Hr (0-20) Sedimentation Rate C-Reactive Protein 3.0 mg/dl (0.0-0.9) Vancomycin Level 15.6 Trough ug/ml (10.0-20.0) NURYS IZQUIERDO JAVA SECURITY ARCHITECT Aug 07, 2018 12:45
[2018-08-07] MEDS: CEFTRIAXONE 1 GM/50 ML (PMX) 50 ML IVPB SCH (13:00)
[2018-08-07 13:49] VITALS: BP 114/70; PULSE 72; RESP 17
== END 2018-08-07 14:35 | disposition home or self-care (01) | DRG 603 ==
LOC: 5EC 09:55
PROVIDERS: ADMIT Internal Medicine; ATTEND Internal Medicine
DX: L03.317 Cellulitis of buttock (principal); K76.6 Portal hypertension; K74.60 Unspecified cirrhosis of liver; I10 Essential (primary) hypertension; F17.200 Nicotine dependence, unspecified, uncomplicated; E53.8 Deficiency of other specified B group vitamins; F17.210 Nicotine dependence, cigarettes, uncomplicated; B18.2 Chronic viral hepatitis C; Z98.82 Breast implant status; Z87.11 Personal history of peptic ulcer disease
CPT/HCPCS: 80048; 80053; 80061; 80202; 82607; 83036; 83735; 84100; 84703; 85025; 85651; 86140; 86703; 86704; 86709; 86803; 87040; 87081; 87340; 97161; J0696; J1650; J1885; J2270; J3370; J7030; J7050